=== PATIENT | male | born 1985 | race African-American/Black ===

== ENCOUNTER 2017-06-01 16:06 | Emergency (ER) | payer OTHER ==
[2017-06-01 16:23] VITALS: BP 134/87; PULSE 118; TEMP 98.2; BMI 35.3
--- NOTE | 2017-06-01 16:26 | PDOC ---
Rapid Medical Evaluation Chief Complaint: Pain Time Seen by Provider: 06/01/17 16:21 Medical Evaluation: Allergies Allergy/AdvReac Type Severity Reaction Status Date / Time No Known Allergies Allergy Verified 05/28/14 15:48 06/01/17 16:22 The patient presents with a chief complaint of: L foot pain since yesterday. Pt states pain increased overnight. No trauma. Took Tylenol for pain with minimal relief. I have performed a brief in-person evaluation of this patient; Pertinent physical exam findings: TTP of L foot to the base of the 3rd and 4th toes. I have ordered the following: Uric acid, L foot x-ray The patient will proceed to the ED for further evaluation.
--- NOTE | 2017-06-01 17:32 | PDOC ---
History of Present Illness - General Chief Complaint: Pain Stated Complaint: FOOT PAIN Time Seen by Provider: 06/01/17 16:21 History Source: Patient Exam Limitations: No Limitations - History of Present Illness Initial Comments: 06/01/17 17:27 CHIEF COMPLAINT: Pain to the plantar surface of left foot at base of left third and fourth toe HISTORY OF PRESENT ILLNESS: Patient is a 32-year-old male denies any significant medical history currently on no medication states yesterday he woke up with a little pain to left foot now with pain at the base of the left third and fourth toe, plantar surface. Patient reports recently having a rich diet and drinking alcohol over the holidays. Patient denies any injury, denies any new shoes or dancing or walking for prolonged periods. Occurred: reports: yesterday Severity: Yes: moderate Lower Extremity Pain Location: left: foot Method of Injury: Yes: unknown Modifying Factors: improves with: pain medication (took tylenol with no resolve. ) Lower Ext. Injury Location - Specific Injury Location Foot: left foot pain Extremity Pain Location - Extremity Pain Location Extremity Pain Locations: left: foot Past History - Past Medical History Allergies/Adverse Reactions: Allergies Allergy/AdvReac Type Severity Reaction Status Date / Time No Known Allergies Allergy Verified 06/01/17 16:23 Home Medications: Ambulatory Orders Naproxen [Naprosyn -] 500 mg PO BID #20 tablet 06/01/17 COPD: No - Immunization History Immunization Up to Date: No - Suicide/Smoking/Psychosocial Hx Smoking Status: No Smoking History: Current every day smoker Number of Cigarettes Smoked Daily: 3 Information on smoking cessation initiated: No Hx Alcohol Use: Yes (SOCIAL) Substance Use Type: None, Marijuana Review of Systems - Review of Systems Constitutional: No: Symptoms Reported HEENTM: No: Symptoms Reported Respiratory: No: Symptoms reported Cardiac (ROS): No: Symptoms Reported ABD/GI: No: Symptoms Reported : No: Symptoms Reported Musculoskeletal: Yes: Joint Pain. No: Joint Swelling, Muscle Pain, Neck Pain, Joint Stiffness Integumentary: No: Symptoms Reported, Bruising, Erythema Neurological: No: Paresthesia, Tingling, Tremors All Other Systems: Reviewed and Negative *Physical Exam - Vital Signs Last Vital Signs Temp Pulse Resp BP Pulse Ox 98.2 F 118 H 20 134/87 98 06/01/17 16:21 06/01/17 16:21 12/28/17 16:21 06/01/17 16:21 06/01/17 16:21 - Physical Exam General Appearance: Yes: Appropriately Dressed. No: Apparent Distress Respiratory/Chest: positive: Lungs Clear, Normal Breath Sounds. negative: Respiratory Distress, Accessory Muscle Use Cardiovascular: positive: Regular Rhythm, Regular Rate Musculoskeletal: positive: Normal Inspection. negative: Decreased Range of Motion, Muscle Spasm, Vertebral Tenderness Extremity: positive: Normal Capillary Refill, Normal Inspection, Normal Range of Motion, Tender (to the left fourth ad fifth toe, plantar surface of left foot. No erythema, edema or bruising. ) Integumentary: positive: Normal Color, Dry. negative: Erythema, Swelling, Ecchymosis, Bruising Neurologic: positive: Alert, Normal Mood/Affect, Normal Response, Motor Strength 10/07 ED Treatment Course - RADIOLOGY Radiology Studies Ordered: Category Date Time Status FOOT-LEFT [RAD] Stat Radiology 06/01/17 16:49 Taken Medical Decision Making - Medical Decision Making 06/01/17 17:34 A/P: Patient with sudden onset of pain to left foot denies any injury. Uric acid Sent to rule out gout and x-ray 06/01/17 18:42 Uric acid is 8.4 consistent with inflammatory arthritis, patient is concerned because he does not have health insurance that covers prescription care will start patient on Naprosyn to take until symptoms resolve if symptoms are not resolving to follow-up with primary care doctor I have offered patient a shot of Toradol while in emergency department, he refused will give Naprosyn here X-ray of foot is negative for acute fracture or dislocation I discussed the physical exam findings, ancillary test results and final diagnoses with the patient. I answered all of the patient's questions. The patient was satisfied with the care received and felt comfortable with the discharge plan and treatment plan. The patient will call to arrange follow-up and will return to the Emergency Department with any new, persistent or worsening symptoms. *DC/Admit/Observation/Transfer Diagnosis at time of Disposition: Gout attack Qualifiers: Gout site: foot Gout etiology: unspecified cause Laterality: left Qualified Code(s): M10.9 - Gout, unspecified - Discharge Dispostion Disposition: HOME Condition at time of disposition: Stable Admit: No - Prescriptions Prescriptions: Naproxen [Naprosyn -] 500 mg PO BID #20 tablet - Referrals Referrals: [facility] [Provider Group] - Patient Instructions Printed Discharge Instructions: Gout (Alternative Therapy) Additional Instructions: Please follow-up with your primary care doctor if symptoms are not starting to resolve in 3 days If any increased pain, swelling, inability to ambulate, or any other concerns return to ER Low purine Diet - Post Discharge Activity Forms/Work/School Notes: Back to Work
[2017-06-01] MEDS ORDERED: NAPROXEN 500 MG TABLET (FP) PO ONE (18:47)
[2017-06-01] MEDS ORDERED: NAPROXEN 500 MG TABLET (FP) ONE (18:48)
== END 2017-06-01 18:49 | disposition home or self-care (01) ==
LOC: JERFT 16:06
DX: M10.9 Gout, unspecified (principal)
CPT/HCPCS: 36415; 73630-TC-LT; 84550; 99281-25

== ENCOUNTER 2018-05-01 10:05 | Emergency (ER) | payer OTHER ==
[2018-05-01 10:27] VITALS: BP 140/88; PULSE 81; TEMP 98.3; BMI 34.4
--- NOTE | 2018-05-01 11:34 | PDOC ---
History of Present Illness - General Chief Complaint: Injury Stated Complaint: INJURY TO SHOULDER (NOT WORK RELATED) Time Seen by Provider: 05/01/18 11:19 - History of Present Illness Initial Comments: 05/01/18 11:33 33-year-old male without comorbidities presents for evaluation of one day of atraumatic right shoulder pain. He states he fell asleep on the couch woke up and couldn't move shoulder. He has no systemic symptoms. Past History - Past Medical History Allergies/Adverse Reactions: Allergies Allergy/AdvReac Type Severity Reaction Status Date / Time No Known Allergies Allergy Verified 05/01/18 10:23 Home Medications: Ambulatory Orders Ibuprofen [Motrin -] 600 mg PO TID #30 tablet 05/01/18 COPD: No - Immunization History Immunization Up to Date: Yes - Suicide/Smoking/Psychosocial Hx Smoking Status: No Smoking History: Current every day smoker Number of Cigarettes Smoked Daily: 3 Information on smoking cessation initiated: No Hx Alcohol Use: Yes (SOCIAL) Drug/Substance Use Hx: Yes (MARIJUANA) Substance Use Type: None, Marijuana Review of Systems - Review of Systems Constitutional: No: Fever Musculoskeletal: Yes: Joint Pain *Physical Exam - Vital Signs Last Vital Signs Temp Pulse Resp BP Pulse Ox 98.3 F 81 16 140/88 99 05/01/18 10:24 05/01/18 10:24 05/01/18 10:24 05/01/18 10:24 05/01/18 10:24 - Physical Exam Comments: 05/01/18 11:33 Right shoulder skin color and temperature are normal. There is no tenderness. Range of motion is limited in external rotation and abduction. Full internal rotation and adduction. 3 out of 5 super spinatus isolation. He is unable to tolerate impingement maneuvers. No gross sensorimotor deficits she's neurovascularly intact. Negative Spurling maneuver Moderate Sedation - Procedure Monitoring Vital Signs: Procedure Monitoring Vital Signs Temperature 98.3 F 05/01/18 10:24 Pulse Rate 81 05/01/18 10:24 Respiratory Rate 16 05/01/18 10:24 Blood Pressure 140/88 05/01/18 10:24 O2 Sat by Pulse Oximetry (%) 99 05/01/18 10:24 ED Treatment Course - RADIOLOGY Radiology Studies Ordered: Category Date Time Status SHOULDER-RIGHT [RAD] Stat Radiology 05/01/18 11:28 Ordered Medical Decision Making - Medical Decision Making 05/01/18 11:41 X-rays of the right shoulder no acute fracture trimer destructive process, shoulder impingement anti-inflammatories and follow-up with *DC/Admit/Observation/Transfer Diagnosis at time of Disposition: Shoulder impingement - Discharge Dispostion Disposition: HOME Condition at time of disposition: Stable Decision to Admit order: No - Referrals Referrals: Jamie Bhakta MD [Staff Physician] - - Patient Instructions Printed Discharge Instructions: Shoulder Tendinopathy Additional Instructions: Return to the emergency room should symptoms worsen or go unresolved. Please follow-up with orthopedic surgery in 2-3 days for further evaluation and treatment options. The anti-inflammatories one tablet 3 times a day with food discontinue the medication if it bothers your stomach. If he needed additional pain medication you may take Tylenol as well. Please take Tylenol as directed - Post Discharge Activity
== END 2018-05-01 11:50 | disposition home or self-care (01) ==
LOC: JERFT 10:05
DX: M75.41 Impingement syndrome of right shoulder (principal); X50.1XXA Overexertion from prolonged static or awkward postures, initial encounter; Y93.89 Activity, other specified; Y92.038 Other place in apartment as the place of occurrence of the external cause; Y99.8 Other external cause status
CPT/HCPCS: 73030-TC-RT-FY; 99281-25

== ENCOUNTER 2018-11-13 10:33 | Emergency (ER) | payer SELFPAY | END 2018-11-13 11:23 | disposition home or self-care (01) | LOC: JERFT 10:33 ==

== ENCOUNTER 2022-06-11 17:00 | Emergency (ER) | payer OTHER ==
[2022-06-11 17:27] VITALS: BP 128/67; PULSE 72; RESP 17; TEMP 98.2; BMI 35.6
[2022-06-11] MEDS ORDERED: KETOROLAC TROMETHAMINE 30 MG/1 ML VIAL IM ONE (17:53)
[2022-06-11] MEDS ORDERED: KETOROLAC TROMETHAMINE 30 MG/1 ML VIAL ONE (18:06)
== END 2022-06-11 18:15 | disposition home or self-care (01) ==
LOC: JERFT 17:00
PROC: 3E023GC Introduction of Other Therapeutic Substance into Muscle, Percutaneous Approach (ICD-10-PCS; principal; 2022-06-11)
DX: M54.32 Sciatica, left side (principal)
CPT/HCPCS: 99284-25

== ENCOUNTER 2022-11-01 16:11 | Emergency (ER) | payer OTHER ==
[2022-11-01 16:32] VITALS: BP 137/88; PULSE 88; RESP 18; TEMP 98; BMI 35.2
== END 2022-11-01 18:55 | disposition home or self-care (01) ==
LOC: JERFT 16:11
DX: L02.415 Cutaneous abscess of right lower limb (principal); D17.1 Benign lipomatous neoplasm of skin and subcutaneous tissue of trunk; M54.31 Sciatica, right side; M54.32 Sciatica, left side
CPT/HCPCS: 82962; 99282-25